=== PATIENT | female | born 1960 | race Caucasian/White ===

== ENCOUNTER 2020-03-23 05:42 | Inpatient (IN) | payer BC ==
[2020-03-18 13:55] LABS: HEMATOCRIT 37.2 % (36.0-47.0); HEMOGLOBIN 12.1 g/dL (12.0-15.5); MEAN CORPUSCULAR HEMOGLOBIN 28.2 pg (27.0-33.4); MEAN CORPUSCULAR HGB CONC 32.7 g/dL (32.0-36.0); MEAN CORPUSCULAR VOLUME 86 fl (80-97); PLATELET COUNT 237 10^3/uL (150-450); RED BLOOD COUNT 4.31 10^6/uL (3.72-5.28); WHITE BLOOD COUNT 6.9 10^3/uL (4.0-10.5)
--- NOTE | 2020-03-18 13:59 | RADIOLOGY REPORT (SQ) ---
EXAM DESCRIPTION: CHEST PA/LATERAL IMAGES COMPLETED DATE/TIME: 03/18/2020 1:45 pm REASON FOR STUDY: PRE-OP COMPARISON: None. EXAM PARAMETERS: NUMBER OF VIEWS: two views TECHNIQUE: Digital Frontal and Lateral radiographic views of the chest acquired. RADIATION DOSE: NA LIMITATIONS: none FINDINGS: LUNGS AND PLEURA: No opacities, masses or pneumothorax. No pleural effusion. MEDIASTINUM AND HILAR STRUCTURES: No masses or contour abnormalities. HEART AND VASCULAR STRUCTURES: Heart normal size. No evidence for failure. BONES: No acute findings. HARDWARE: None in the chest. OTHER: No other significant finding. IMPRESSION: NO SIGNIFICANT RADIOGRAPHIC FINDING IN THE CHEST. TECHNICAL DOCUMENTATION: JOB ID: [id number] 2010 [employer]- All Rights Reserved Reading location - IP/workstation name: [email or web address]
[2020-03-18 14:06] LABS: APPEARANCE,URINE CLOUDY; BILIRUBIN,URINE NEGATIVE (NEGATIVE); COLOR,URINE YELLOW; GLUCOSE, URINE NEGATIVE (NEGATIVE); KETONES,URINE NEGATIVE (NEGATIVE); LEUKOCYTE ESTERASE,URINE NEGATIVE (NEGATIVE); NITRITE,URINE NEGATIVE (NEGATIVE); PROTEIN,URINE NEGATIVE (NEGATIVE); URINE SPECIFIC GRAVITY 1.027; UROBILINOGEN,URINE NEGATIVE mg/dL (<2.0)
[2020-03-18 14:33] LABS: ANION GAP 9 (5-19); BLOOD UREA NITROGEN 17 mg/dL (7-20); CALCIUM 8.9 mg/dL (8.4-10.2); CARBON DIOXIDE 25 mmol/L (22-30); CHLORIDE 106 mmol/L (98-107); GLUCOSE 107 mg/dL (75-110); POTASSIUM 4.5 mmol/L (3.6-5.0)
[2020-03-18 14:35] LABS: URINE AMPHETAMINES SCREEN NEGATIVE; URINE BARBITURATES SCREEN NEGATIVE; URINE BENZODIAZEPINES SCREEN NEGATIVE; URINE COCAINE SCREEN NEGATIVE; URINE MARIJUANA (THC) SCREEN NEGATIVE; URINE METHADONE SCREEN NEGATIVE; URINE PHENCYCLIDINE SCREEN NEGATIVE
[2020-03-18 14:38] LABS: ALCOHOL < 10 mg/dL (NONE DETECTED)
--- NOTE | 2020-03-18 16:59 | EKG REPORT ---
SEVERITY:- BORDERLINE ECG - SINUS BRADYCARDIA ARM LEAD REVERSAL. : Confirmed by: Thomas Abreu MD 18-Mar-2020 16:58:13
[~2020-03-23 05:42] MED LIST: CEFAZOLIN 2 GM/D5W RTU 2 GM/50 ML RTUPB IV PRN; LACTATED RINGERS 1000 ML IV PRN; LIDOCAINE 0.5% INJ-PF (5 MG/ML) 50 ML SDV SUBCUT PRN
[2020-03-23] MEDS ORDERED: CEFAZOLIN 2 GM/D5W RTU 2 GM/50 ML RTUPB IV ONE (06:20)
[2020-03-23] MEDS ORDERED: MINERAL OIL (STERILE) 10 ML VIAL ONE (07:07)
[2020-03-23] MEDS ORDERED: BUPIVACAINE HCL 0.5 % INJ/PF 30 ML SDV ONE (07:07)
[2020-03-23] MEDS ORDERED: BUPIVACAINE INJ/PF LIPOSOME/PF 266 MG/20 ML SDV ONE (07:07)
[2020-03-23] MEDS ORDERED: HEPARIN SOD (PORCINE) 1,000 UNIT/ML 10 ML VIAL ONE (07:08)
[2020-03-23] MEDS ORDERED: BACITRACIN INJ 50,000 UNIT VIAL ONE (07:08)
[2020-03-23] MEDS ORDERED: LIDOCAINE 2% INJ-PF (100 MG/5 ML) SYRINGE ONE (07:22)
[2020-03-23] MEDS ORDERED: FENTANYL CITRATE INJ/PF 250 MCG/5 ML AMPULE ONE (07:22)
[2020-03-23] MEDS ORDERED: KETAMINE HCL INJ 500 MG/10 ML VIAL ONE (07:22)
[2020-03-23] MEDS ORDERED: PROPOFOL 1,000 MG/100 ML INFUS..BTL IV ONE ×2 (07:23→09:48)
[2020-03-23] MEDS ORDERED: MIDAZOLAM 2 MG/2 ML INJ ONE (07:23)
[2020-03-23] MEDS ORDERED: DEXTROSE 40% GEL 15 GM TUBE PO PRN ×4 (07:28→16:08)
[2020-03-23] MEDS ORDERED: GLUCAGON,HUMAN RECOMB 1 MG INJ SUBCUT PRN (07:28)
[2020-03-23] MEDS ORDERED: ACETAMINOPHEN 325 MG TABLET PO PRN (07:28)
[2020-03-23] MEDS ORDERED: DEXTROSE 50%-WATER 25 GM/50 ML DISP.SYRIN IV PRN ×4 (07:28→16:08)
[2020-03-23] MEDS ORDERED: RINGERS SOLUTION,LACTATED 1,000 ML IV PRN (07:28)
[2020-03-23] MEDS ORDERED: MORPHINE SULFATE 10 MG/ML INJ IV PRN (07:28)
[2020-03-23] MEDS ORDERED: ACETAMINOPHEN SOLN 325 MG/10.15 ML UDCUP PO PRN (07:40)
[2020-03-23] MEDS ORDERED: PROMETHAZINE HCL INJ 25 MG/1 ML VIAL IM PRN (07:40)
[2020-03-23] MEDS ORDERED: NA PHOS,M-B/NA PHOS,DI-BA (ADULT) 133 ML ENEMA PR PRN (07:40)
[2020-03-23] MEDS ORDERED: PROMETHAZINE HCL 25 MG TABLET PO PRN (07:40)
[2020-03-23] MEDS ORDERED: DIPHENHYDRAMINE HCL 25 MG CAPSULE PO PRN (07:40)
[2020-03-23] MEDS ORDERED: DIAZEPAM 5 MG TABLET PO PRN (07:40)
[2020-03-23] MEDS ORDERED: DIPHENHYDRAMINE HCL 50 MG/ML VIAL IV PRN ×2 (07:40→10:04)
[2020-03-23] MEDS ORDERED: ACETAMINOPHEN 650 MG SUPP.RECT PR PRN (07:40)
[2020-03-23] MEDS ORDERED: ONDANSETRON HCL INJ/PF 4 MG/2 ML SDV IV PRN (07:40)
[2020-03-23] MEDS ORDERED: HYOSCYAMINE SULFATE 0.125 MG SL PRN (07:45)
[2020-03-23] MEDS ORDERED: (PENDING PHARMACY ID) (Dexlansoprazole [Dexilant 30 Mg Capsule] 30 MG) PO SCH (08:00)
[2020-03-23] MEDS ORDERED: METFORMIN HCL 500 MG TABLET PO SCH (08:00)
[2020-03-23] MEDS ORDERED: (PENDING PHARMACY ID) (Diclofenac Sodium [Diclofenac Sodium] 75 MG) PO SCH (10:00)
[2020-03-23] MEDS ORDERED: LEVOTHYROXINE SODIUM 50 MCG PO SCH (10:00)
[2020-03-23] MEDS ORDERED: (PENDING PHARMACY ID) (Spironolactone [Spironolactone] 100 MG) PO SCH (10:00)
[2020-03-23] MEDS ORDERED: HYDROCODONE BITARTRATE 30 MG PO SCH (10:00)
[2020-03-23] MEDS ORDERED: ESTRADIOL 0.5 MG PO SCH (10:00)
[2020-03-23] MEDS ORDERED: PROMETHAZINE HCL INJ 25 MG/1 ML VIAL IV PRN ×2 (10:04)
[2020-03-23] MEDS ORDERED: FENTANYL CITRATE INJ/PF 100 MCG/2 ML AMPUL IV PRN ×3 (10:04)
[2020-03-23] MEDS ORDERED: MEPERIDINE HCL/PF INJ 25 MG/1 ML DISP.SYRIN IV PRN (10:04)
[2020-03-23] MEDS ORDERED: METHOCARBAMOL INJ/PF 1000 MG/10 ML SDV ONE (10:50)
--- NOTE | 2020-03-23 10:58 | Operative Report ---
Operative Report DATE OF SURGERY: 03/23/20 PREOPERATIVE DIAGNOSIS: L4-5 spondylolisthesis, instability, back pain, degener ative disc disease, radiculitis. POSTOPERATIVE DIAGNOSIS: L4-5 spondylolisthesis, instability, back pain, degenerative disc disease, radiculitis. Status post anterior lateral interbody fusion robotically assisted at L4-5 and interbody spacer L4-5, posterior fusion instrumentation L4-5 robotically assisted. Iliac crest aspiration iliac rest for bone marrow concentration to be used and interbody spacer with allograft. OPERATION: anterior lateral interbody fusion robotically assisted at L4-5 and interbody spacer L4-5, posterior fusion instrumentation L4-5 robotically assisted. Iliac crest aspiration iliac rest for bone marrow concentration to be used and interbody spacer with allograft. SURGEON: SALVATORE KWOK 1ST [employer] SET UP OPERATOR: ZAYRA CRAIN ANESTHESIA: GA COMPLICATIONS: None ESTIMATED BLOOD LOSS: 200 cc patient given back 125 cc of Cell Saver PROCEDURE: Patient is brought into the room placed under general anesthesia received 2 g of Ancef within 1 hour of cut time was placed on the Lee table medial epicondyles and axillary areas are well-padded. Neuro monitoring leads for SSEP and cranial motor testing are placed on the patient as well as a Lang catheter is placed preoperatively. After appropriate surgical timeout the PhotoBox robot is utilized and on the right posterior superior iliac spine a pin is placed and attached to the robot. After obtaining registration imaging in the AP and oblique position and verification at L4 5.5 x 45 mm screws x2 at L5 6.5 x 40 mm screws x2 Solera Voyager screws screws are inserted using portal incisions on the right and the left at L4 and L5 bilaterally. Left iliac crest is aspirated at 2 different sites total of 50 cc of bone marrow aspirate are obtained and concentrated to be used an interbody spacer with the allograft. Attention was then paid to the left sided anterior lateral portal for entry into the disc space which is carried out under navigation guidance upon verification also with x-rays and then stimulation thresholds greater than 30mA. Upon inserting the portal into the disc space at L4-5 fluoroscopy was used to verify the position as it did also to verify the screws position. Endplate tatyana and curettes and brushes are used to carry out a complete discectomy then the verify balloon is inserted to verify good contact with the endplates. Then the appropriate size mesh spacer is introduced into the interbody. The mesh spacer is soaked in bone marrow aspirate concentrate and is filled with bone graft showing good correction and good containment within the disc space at L4-5. Upon neuro monitoring testing and cranial motor testing found to be stable then the portal is removed anterior laterally and attention is then paid to the placement of the rods upon using the caliper device the appropriate length rods were determined to be 40 mm shanae on the right and 45 mm shanae on the left those are passed down and locked into position and final tightened. Then the tabs are removed and the portals are irrigated with copious amounts of irrigation and the posterior superior iliac spine pin connected to the robot is removed as well and the deep and superficial tissues were infiltrated with 1.3% Exparel 20 cc mixed with 20 cc of 0.5% bupivacaine plain. The portals are closed using 2-0 Vicryl and then Dermabond and Steri-Strips then 4 x 4's were used to cover the wounds on the right and the left and dressed with coverall tape. Please note that this procedure could not be done without the assistance of Dennis Carrizales working to assist with the placement of the screws positioning of the robot carrying out the aspiration through the left side iliac crest aspiration please also note that the iliac crest aspiration is carried out on the left side through a separate incision. Dennis Carrizales was instrumental throughout this whole process and I could not have done this procedure without his assistance as mentioned above.
[2020-03-23] MEDS: FENTANYL CITRATE INJ/PF 100 MCG/2 ML AMPUL ONE ×2 (11:05→11:10)
[2020-03-23] MEDS: SENNOSIDES/DOCUSATE 8.6-50 MG 1 EACH TABLET PO SCH ×2 (12:28→18:07)
[2020-03-23] MEDS: HYDROXYCHLOROQUINE SULFATE 200 MG TABLET PO SCH ×2 (12:28→18:07)
[2020-03-23] MEDS: ASPIRIN 81 MG TABLET, CHEWABLE PO SCH (12:28)
[2020-03-23] MEDS ORDERED: PHENYLEPHRINE HCL INJ/PF 10 MG/1 ML SDV ONE (13:54)
[2020-03-23] MEDS ORDERED: SUCCINYLCHOLINE CHLORIDE INJ 200 MG/10 ML VIAL ONE (13:54)
[2020-03-23] MEDS ORDERED: DEXAMETHASONE SOD PHOSPHATE INJ 4 MG/1 ML VIAL ONE (13:54)
[2020-03-23] MEDS ORDERED: ONDANSETRON HCL INJ/PF 4 MG/2 ML SDV ONE (13:54)
[2020-03-23] MEDS ORDERED: CEFAZOLIN 2 GM/D5W RTU 2 GM/50 ML RTUPB IV SCH (14:00)
[2020-03-23] MEDS: CEFAZOLIN SODIUM 2 GM in DEXTROSE 5%-WATER 100 ML IV SCH ×2 (14:23→22:07)
[2020-03-23] MEDS: HYDROMORPHONE HCL INJ/PF 2 MG/ML AMPULE IV PRN (14:29)
[2020-03-23] MEDS: METFORMIN HCL 500 MG TABLET PO SCH (15:22)
--- NOTE | 2020-03-23 16:05 | RADIOLOGY REPORT (SQ) ---
EXAM DESCRIPTION: L SPINE 2 VIEWS; NO CHG FLUORO IMAGES COMPLETED DATE/TIME: 03/23/2020 2:57 pm; 03/23/2020 10:57 am REASON FOR STUDY: LUMBAR FUSION ASSISTED WITH FLUORO IN OR M51.16 INTERVERTEBRAL DISC DISORDERS W R ADICULOPATHY, LUMBAR M51.36 OTHER INTERVERTEBRAL DISC DEGENERATION, LUMBAR REGION M51.26 OTHER INTE RVERTEBRAL DISC DISPLACEMENT, LUMBAR REGION COMPARISON: None. FLUOROSCOPY TIME: 1.3 minutes Spot images saved to PACS. TECHNIQUE: Intra-operative images acquired during surgical procedure to evaluate progress. NUMBER OF IMAGES: 2 LIMITATIONS: None. FINDINGS: Fluoroscopy was provided for intraoperative procedure. Please refer to the operative repo rt for further discussion. IMPRESSION: IMAGE(S) OBTAINED DURING PROCEDURE. COMMENT: Quality ID [id number]: Final reports for procedures using fluoroscopy that document radiation exp osure indices, or exposure time and number of fluorographic images (if radiation exposure indices are not available) Please consult full operative report of the attending physician for description of the procedure. TECHNICAL DOCUMENTATION: JOB ID: [id number] 2010 [employer]- All Rights Reserved Reading location - IP/workstation name: [email or web address]
--- NOTE | 2020-03-23 16:05 | RADIOLOGY REPORT (SQ) ---
EXAM DESCRIPTION: L SPINE 2 VIEWS; NO CHG FLUORO IMAGES COMPLETED DATE/TIME: 03/23/2020 2:57 pm; 03/23/2020 10:57 am REASON FOR STUDY: LUMBAR FUSION ASSISTED WITH FLUORO IN OR M51.16 INTERVERTEBRAL DISC DISORDERS W R ADICULOPATHY, LUMBAR M51.36 OTHER INTERVERTEBRAL DISC DEGENERATION, LUMBAR REGION M51.26 OTHER INTE RVERTEBRAL DISC DISPLACEMENT, LUMBAR REGION COMPARISON: None. FLUOROSCOPY TIME: 1.3 minutes Spot images saved to PACS. TECHNIQUE: Intra-operative images acquired during surgical procedure to evaluate progress. NUMBER OF IMAGES: 2 LIMITATIONS: None. FINDINGS: Fluoroscopy was provided for intraoperative procedure. Please refer to the operative repo rt for further discussion. IMPRESSION: IMAGE(S) OBTAINED DURING PROCEDURE. COMMENT: Quality ID [id number]: Final reports for procedures using fluoroscopy that document radiation exp osure indices, or exposure time and number of fluorographic images (if radiation exposure indices are not available) Please consult full operative report of the attending physician for description of the procedure. TECHNICAL DOCUMENTATION: JOB ID: [id number] 2010 [employer]- All Rights Reserved Reading location - IP/workstation name: [email or web address]
[2020-03-23] MEDS ORDERED: GLUCAGON,HUMAN RECOMB 1 MG INJ IM PRN (16:08)
[2020-03-23] MEDS: INSULIN LISPRO 100 UNIT/ML 3 ML VIAL SUBCUT SCH ×2 (16:40→22:14)
[2020-03-23] MEDS: HYDROCODONE/ACETAMINOPHEN 5-325 MG TABLET PO PRN ×2 (16:42→19:56)
[2020-03-23] MEDS ORDERED: METOPROLOL SUCCINATE 25 MG TAB.SR.24H PO SCH ×2 (18:00→22:00)
[2020-03-23] MEDS ORDERED: (PENDING PHARMACY ID) (Metformin Hcl [Metformin Hcl Er] 1,000 MG) PO SCH (18:00)
[2020-03-23] MEDS: OXYCODONE HCL IR 5 MG TABLET PO PRN ×2 (18:08→22:08)
[2020-03-23] MEDS: METHOCARBAMOL 750 MG TABLET PO PRN (19:56)
[2020-03-23] MEDS: PREGABALIN 75 MG CAPSULE PO SCH (22:07)
[2020-03-24] MEDS ORDERED: HYDROMORPHONE HCL INJ/PF 2 MG/ML AMPULE ONE ×2 (02:15→06:18)
[2020-03-24] MEDS: HYDROMORPHONE HCL INJ/PF 2 MG/ML AMPULE IV PRN ×2 (02:30→06:24)
[2020-03-24] MEDS: HYDROCODONE/ACETAMINOPHEN 5-325 MG TABLET PO PRN (05:03)
[2020-03-24] MEDS: OXYCODONE HCL IR 5 MG TABLET PO PRN (05:04)
[2020-03-24 05:55] LABS: HEMATOCRIT 30.8 % (36.0-47.0); HEMOGLOBIN 10.2 g/dL (12.0-15.5); MEAN CORPUSCULAR HEMOGLOBIN 28.5 pg (27.0-33.4); MEAN CORPUSCULAR VOLUME 86 fl (80-97); PLATELET COUNT 193 10^3/uL (150-450); RED BLOOD COUNT 3.57 10^6/uL (3.72-5.28); RED CELL DISTRIBUTION WIDTH 13.8 % (11.5-14.0); WHITE BLOOD COUNT 11.1 10^3/uL (4.0-10.5)
[2020-03-24] MEDS ORDERED: LEVOTHYROXINE SODIUM 0.05 MG TABLET PO SCH (06:00)
[2020-03-24] MEDS: METHOCARBAMOL 750 MG TABLET PO PRN (06:21)
[2020-03-24] MEDS ORDERED: PANTOPRAZOLE SODIUM 40 MG TABLET.DR PO SCH (08:00)
[2020-03-24] MEDS: INSULIN LISPRO 100 UNIT/ML 3 ML VIAL SUBCUT SCH ×2 (09:32→11:10)
[2020-03-24] MEDS: ASPIRIN 81 MG TABLET, CHEWABLE PO SCH (09:37)
[2020-03-24] MEDS: METFORMIN HCL 500 MG TABLET PO SCH (09:38)
[2020-03-24] MEDS: PREGABALIN 75 MG CAPSULE PO SCH (09:38)
[2020-03-24] MEDS: SENNOSIDES/DOCUSATE 8.6-50 MG 1 EACH TABLET PO SCH (09:39)
[2020-03-24] MEDS: HYDROXYCHLOROQUINE SULFATE 200 MG TABLET PO SCH (09:40)
[2020-03-24] MEDS ORDERED: SPIRONOLACTONE 25 MG TABLET PO SCH (10:00)
--- NOTE | 2020-03-24 10:30 | PDOC PROGRESS REPORT ---
Subjective Progress Note for:: 03/24/20 Subjective:: M51.16 INTERVERTEBRAL DISC DISORDERS W RADICULOPAThy: POD 1 lumbar fusion: patient reports that she did not get her medicine as scheduled last night but reports that her pain is now under good control. She reports that she would like to go home after working with PT. she is sitting in bed at time of exam and reports that she has no right sided leg pain. She is also eating well and drinking well Reason For Visit: M51.16 INTERVERTEBRAL DISC DISORDERS W RADICULOPAThy: POD 1 lumbar fusion: patient reports that she did not get her medicine as scheduled last night but reports that her pain is now under good control. She reports that she would like to go home after working with PT Physical Exam Vital Signs: Temp Pulse Resp BP Pulse Ox 97.8 F 58 L 18 121/65 98 03/24/20 10:00 03/24/20 08:05 03/24/20 08:05 03/24/20 08:05 03/24/20 08:05 Intake & Output 03/23/20 03/24/20 03/25/20 06:59 06:59 06:59 Intake Total 2400 1000 Output Total 625 Balance 1775 1000 Weight 93.4 kg General appearance: PRESENT: no acute distress, cooperative Additional comments: Lumbar spine: Dressing is clean and dry no drainage noted. normal post operative swelling and tenderness is noted. Skin exam: PRESENT: dry Results Laboratory Results: 03/24/20 05:22 03/23/20 06:13 03/24/20 05:22 WBC 11.1 H RBC 3.57 L Hgb 10.2 L Hct 30.8 L MCV 86 MCH 28.5 MCHC 33.0 RDW 13.8 Plt Count 193 Impressions: Chest X-Ray 03/18/20 13:28 IMPRESSION: NO SIGNIFICANT RADIOGRAPHIC FINDING IN THE CHEST. Fluoroscopy 03/23/20 00:00 IMPRESSION: IMAGE(S) OBTAINED DURING PROCEDURE. Lumbar Spine X-Ray 03/23/20 00:00 IMPRESSION: IMAGE(S) OBTAINED DURING PROCEDURE. Assessment & Plan - Time Time Spent with patient: Less than 15 minutes - Inpatient Certification Based on my medical assessment, after consideration of the patient's comorbidities, presenting symptoms, or acuity I expect that the services needed warrant INPATIENT care.: Yes - Plan Summary Plan Summary: POD 1 lumbar fusion : Progress per protocol, D/C home today, follow up in c linic in 7-10 days
[2020-03-24 10:54] VITALS: BP 113/58
[2020-03-25] MEDS ORDERED: BISACODYL 10 MG SUPP.RECT PR PRN (05:00)
[2020-03-25] MEDS ORDERED: BISACODYL 5 MG TABEC PO PRN (05:00)
--- NOTE | 2020-03-29 11:47 | Discharge Summary ---
Discharge Summary (SDC) - Discharge Final Diagnosis: Spondylolethesis L4-L5 S/P Lumbar fusion Date of Surgery: 03/23/20 Discharge Date: 03/24/20 Condition: Good Forms: Discharge POC-Adult Referrals: SALVATORE KWOK MD [ASSOCIATE] - 04/05/20 2:15 pm Respiratory Treatments at Home: Deep Breathing/Coughing, Incentive Spirometer Discharge Activity: Activity As Tolerated, No Lifting Over 10 Pounds, No Lifting/Push/Pulling, Other Home Care Assistance: Provided by Family Report the Following to Your Physician Immediately: Nausea, Vomiting, Increase in Pain, Fever over 101 Degrees, Unusual Bleeding, Redness, Swelling, Warmth, Drainage-Yellow, Drainage-Palacios, Drainage-Green, Drainage-Foul Smelling, IV Site Infection Signs
== END 2020-03-24 12:43 | disposition home or self-care (01) | DRG 455 ==
LOC: INOR 05:42 → 4S 11:49
PROVIDERS: ADMIT Orthopaedic Surgery; ATTEND Orthopaedic Surgery
PROC: 0SG04A0 Fusion of Lumbar Vertebral Joint with Interbody Fusion Device, Anterior Approach, Anterior Column, Percutaneous Endoscopic Approach (ICD-10-PCS; 2020-03-23)
PROC: 0ST20ZZ Resection of Lumbar Vertebral Disc, Open Approach (ICD-10-PCS; 2020-03-23)
PROC: 07DR3ZZ Extraction of Iliac Bone Marrow, Percutaneous Approach (ICD-10-PCS; 2020-03-23)
PROC: 8E0W4CZ Robotic Assisted Procedure of Trunk Region, Percutaneous Endoscopic Approach (ICD-10-PCS; 2020-03-23)
PROC: 0SG0371 Fusion of Lumbar Vertebral Joint with Autologous Tissue Substitute, Posterior Approach, Posterior Column, Percutaneous Approach (ICD-10-PCS; principal; 2020-03-23 07:30)
DX: M51.16 Intervertebral disc disorders with radiculopathy, lumbar region (principal); M51.36 Other intervertebral disc degeneration, lumbar region; M51.26 Other intervertebral disc displacement, lumbar region; M43.16 Spondylolisthesis, lumbar region; K21.9 Gastro-esophageal reflux disease without esophagitis; G47.30 Sleep apnea, unspecified; M48.02 Spinal stenosis, cervical region; Z79.899 Other long term (current) drug therapy; Z79.84 Long term (current) use of oral hypoglycemic drugs; Z79.890 Hormone replacement therapy; Z85.828 Personal history of other malignant neoplasm of skin
CPT/HCPCS: 00630; 36415; 71046; 72100; 80048; 80307; 81001; 82962; 83036; 84132; 85027; 87070; 87635; 93005; 93010; 94760; 94799; C1713; C1781; C9290; C9803; J0330; J0690; J1100; J1170; J1644; J2001; J2250; J2270; J2370; J2405; J2704; J2800; J3010; J3490; J7060; J7120; Q9966